=== PATIENT | female | born 1955 | race African-American/Black ===

== ENCOUNTER → 2018-05-17 | Outpatient (CLI) | payer BC | END | disposition home or self-care (01) | LOC: MAMMO 10:09 | DX: Z12.31 Encounter for screening mammogram for malignant neoplasm of breast (principal) | CPT/HCPCS: 77067 ==

== ENCOUNTER → 2018-06-21 | Outpatient (CLI) | payer BC | END | disposition home or self-care (01) | LOC: US 11:13 | DX: R92.8 Other abnormal and inconclusive findings on diagnostic imaging of breast (principal) | CPT/HCPCS: 76641 ==

== ENCOUNTER → 2019-02-14 | Outpatient (CLI) | payer BC ==
--- NOTE | 2019-02-14 10:37 | RAD ---
Right breast ultrasound, 02/14/2019: History: Follow-up nodule Comparison is made to a study from 06/21/2018. The small hypoechoic nodule seen at the 10:00 location approximately 10 cm from the nipple on the previous study is redemonstrated. It has decreased in size currently measuring 1.2 x 1.8 x 1.6 mm compared to measurements of 3.4 x 3.1 x 3.0 mm on the previous study. It is wider than tall. There are low level internal echoes. This has the appearance of a collapsing complicated cyst. No new abnormality is seen. IMPRESSION: Regressing small right breast lesion compatible with a benign etiology. Follow-up bilateral mammography on the anniversary of the 05/17/2018 exam is suggested. BI-RADS 2-benign findings
== END | disposition home or self-care (01) ==
LOC: US 09:45
PROVIDERS: ATTEND Family Medicine
DX: R92.8 Other abnormal and inconclusive findings on diagnostic imaging of breast (principal)
CPT/HCPCS: 76641